=== PATIENT | female | born 1985 | race Caucasian/White ===

== ENCOUNTER 2021-01-11 02:44 | Emergency (ER) | payer OTHER ==
[~2021-01-11] VITALS: Ht 167.6 cm; Wt 79.4 kg
[2021-01-11 02:48] VITALS: BP 158/102
--- NOTE | 2021-01-11 02:48 | NUR ---
TO BED AMBULATORY
--- NOTE | 2021-01-11 03:00 | NUR ---
TO BED 4 WITH C/O H/A. 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 IS AWAKE AND ALERT. GAIT IS STEADY. JORDYN
--- NOTE | 2021-01-11 03:12 | NUR ---
Patient being evaluated by physician at bedside.
--- NOTE | 2021-01-11 03:32 | NUR ---
TO CT VIA W/C
--- NOTE | 2021-01-11 03:40 | NUR ---
RETURNED FROM CT
[2021-01-11] MEDS ORDERED: NAPR-54 PO (04:23)
[2021-01-11] MEDS: KETOROLAC 60 MG/2 ML VIAL IM ONE (04:25)
[2021-01-11 04:29] VITALS: BP 158/102
== END 2021-01-11 04:29 | disposition home or self-care (01) ==
LOC: MED 02:44
DX: G44.209 Tension-type headache, unspecified, not intractable (principal); I51.9 Heart disease, unspecified; E07.9 Disorder of thyroid, unspecified; Z86.73 Personal history of transient ischemic attack (TIA), and cerebral infarction without residual deficits; Z88.0 Allergy status to penicillin
CPT/HCPCS: 70450; 81002; 81025; 96372; 99284; J1885